=== PATIENT | male | born 1960 | race Caucasian/White ===

== ENCOUNTER 2023-09-22 20:42 | Inpatient (IN) | payer MEDICARE ==
[~2023-09-22] VITALS: Ht 175.3 cm; Wt 86.2 kg
[2023-09-22 20:43] VITALS: BP_SYST 130; PULSE 100; RESP 22; TEMP 100; O2SAT 94
[2023-09-22] MEDS ORDERED: iohexoL 350 mgI/mL, 100 ML INFUS..BTL IV ONE (20:52)
[2023-09-22 21:00] LABS: BASOPHILS % (AUTO) 0.2 % (0.0-2.0); HEMATOCRIT 45.8 % (36-54); HEMOGLOBIN 15.7 g/dL (14.0-18.0); LYMPHOCYTES # (AUTO) 0.3 K/uL (1.0-5.5); LYMPHOCYTES % (AUTO) 1.8 % (20.5-51.5); MEAN CORPUSCULAR HEMOGLOBIN 31 pg (27-31); MEAN CORPUSCULAR HGB CONC 34 % (32-36); MEAN CORPUSCULAR VOLUME 89 fL (79.0-98.0); MONOCYTES # (AUTO) 0.6 K/uL (0.0-1.0); MONOCYTES % (AUTO) 4.1 % (1.7-9.3); NEUTROPHILS # (AUTO) 13.3 K/uL (1.8-7.7); NEUTROPHILS % (AUTO) 93.9 % (40.0-70.0); PLATELET COUNT (AUTO) 162 K/uL (130-430); RED BLOOD CELL COUNT(AUTO) 5.12 MIL/uL (4.2-6.2); RED CELL DISTRIBUTION WIDTH 13.9 % (9.0-15.0); WHITE BLOOD COUNT (AUTO) 14.1 K/uL (4.8-10.8)
[2023-09-22 21:22] LABS: HEMOGLOBIN A1C 6.07 % (<5.7)
[2023-09-22 21:30] LABS: ANION GAP 12 (5-15); CALCIUM 9.1 mg/dL (8.4-11.0); CARBON DIOXIDE 24 mmol/L (23-29); CHLORIDE 100 mmol/L (98-107); CREATININE 1.94 mg/dL (0.55-1.30); GFR AFRICAN AMERICAN 45 mL/min (>90); GLUCOSE 185 mg/dL (74-106); SODIUM SERUM 136 mmol/L (136-145); UREA NITROGEN, BLOOD 35 mg/dL (8-21)
[2023-09-22 21:31] LABS: GFR NON AFRICAN-AMERICAN 37 mL/min (>90)
[2023-09-22 21:34] LABS: INR 1.1 (0.80-1.20); PROTHROMBIN TIME 11.1 SECS (9.5-12.5)
[2023-09-22 21:41] LABS: BILIRUBIN,URINE NEGATIVE (NEGATIVE); BLOOD, URINE 3+ (NEGATIVE); COLOR,URINE YELLOW (YELLOW); GLUCOSE,URINE 1+ (NEGATIVE); KETONES,URINE TRACE (NEGATIVE); LEUKOCYTE ESTERASE ,URINE NEGATIVE (NEGATIVE); NITRITE, URINE NEGATIVE (NEGATIVE); PH,URINE 5.5 (5.0-8.0); PROTEIN URINE 2+ (NEGATIVE)
[2023-09-22] MEDS ORDERED: NACL 0.9% 1,000 ML IV ONE ×2 (21:45→23:45)
[2023-09-22 21:51] LABS: BARBITURATE, URINE NEGATIVE (NEG <=200); BENZODIAZEPINE, URINE NEGATIVE (NEG <=150); CANNABINOID, URINE NEGATIVE (NEG <=50); COCAINE, URINE NEGATIVE (NEG <=150); METHAMPHETAMINES SCREEN,URINE NEGATIVE (NEG <=500); OPIATE, URINE NEGATIVE (NEG <=100); PHENCYCLIDINE SCREEN,URINE NEGATIVE (NEG <=25); UR TRICYCLIC ANTIDEPRESSANTS NEGATIVE (NEG <=300); URINE AMPHETAMINE NEGATIVE (NEG <=500); URINE METHADONE NEGATIVE (NEG <=200); URINE OXYCODONE SCREEN NEGATIVE (NEG <=100)
[2023-09-22 21:53] LABS: CLARITY/URINE CLOUDY (CLEAR)
[2023-09-22 22:04] LABS: CHOLESTEROL 120 mg/dL (<200); HDL CHOLESTEROL 49 mg/dL (>45); TRIGLYCERIDES 115 mg/dL (30-150)
[2023-09-22] MEDS ORDERED: LOSA-413 PO (22:37)
[2023-09-22] MEDS ORDERED: DAPA1TAB3 PO (22:37)
[2023-09-22] MEDS ORDERED: ATOR10TA68 PO (22:40)
[2023-09-22 22:58] LABS: BACTERIA,URINE FEW /HPF (None Seen); WBC,URINE 0-3 /HPF (0-3)
[2023-09-22 22:59] LABS: FINE GRANULAR CASTS,URINE 0-10 /LPF (None Seen); MUCUS,URINE None Seen /LPF (None Seen)
[2023-09-22] MEDS ORDERED: VANCOMYCIN HCL 1,000 MG in NS 250 ML IV ONE (23:45)
[2023-09-22] MEDS ORDERED: ACYCLOVIR IV 750 MG in D5W 100 ML IV ONE (23:45)
[2023-09-22] MEDS ORDERED: ACYCLOVIR SODIUM 50 MG/ML VIAL IV ONE (23:54)
[2023-09-22] MEDS ORDERED: VANCOMYCIN HCL 1000 MG/VIAL IV ONE (23:55)
[2023-09-22] MEDS ORDERED: cefTRIAXone 2 GM VIAL ONE (23:55)
[2023-09-23] MEDS ORDERED: HYDROmorphone 2 MG/ML VIAL IVP PRN
[2023-09-23] MEDS ORDERED: LORazepam 2 MG/ML VIAL IVP PRN
[2023-09-23] MEDS ORDERED: ALBUTEROL SULFATE 0.083% 2.5 MG/3 ML VIAL.NEB INH PRN
[2023-09-23] MEDS ORDERED: HYDROmorphone 1 MG/ML INJ. CARTRIDGE IVP PRN
[2023-09-23] MEDS ORDERED: ASPIRIN 81 MG TAB.CHEW PO ONE
[2023-09-23] MEDS ORDERED: ONDANSETRON HCL 4 MG/2 ML VIAL IVP PRN
[2023-09-23] MEDS ORDERED: ACETAMINOPHEN 650 MG SUPP.RECT RC PRN (00:15)
[2023-09-23 00:37] LABS: COVID19 ANTIGEN SOFIA FIA NEGATIVE (NEGATIVE)
[2023-09-23] MEDS ORDERED: ACETAMINOPHEN 650 MG SUPP.RECT RC ONE (01:08)
[2023-09-23 01:24] LABS: INFLUENZA TYPE A Negative (NEGATIVE); INFLUENZA TYPE B NEGATIVE (NEGATIVE)
[2023-09-23 01:44] VITALS: BP_SYST 122; PULSE 105; O2SAT 96
[2023-09-23 02:49] LABS: CSF APPEARANCE CLEAR (CLEAR); CSF COLOR COLORLESS (COLORLESS)
[2023-09-23 03:16] LABS: CSF RED BLOOD CELL COUNT #1 42 /uL (0-0); CSF RED BLOOD CELL COUNT #4 10 /uL (0-0); CSF WHITE BLOOD CELL COUNT #1 0 /uL (0-5); CSF WHITE BLOOD CELL COUNT #4 0 /uL (0-5)
[2023-09-23 03:36] LABS: CSF PROTEIN 61 mg/dL (15-45)
[2023-09-23 03:37] LABS: CSF GLUCOSE 95 mg/dL (40-70)
[2023-09-23] MEDS ORDERED: DIPHENHYDRAMINE INJ 50 MG/ML VIAL IVP ONE (07:00)
[2023-09-23] MEDS ORDERED: NACL 0.9% 1,000 ML IV SCH (07:45)
[2023-09-23] MEDS ORDERED: DEXTROSE 50% JECT 50 ML DISP.SYRIN IVP PRN (08:00)
[2023-09-23] MEDS ORDERED: INSULIN LISPRO SLIDING SCALE 100 UNITS/ML, 3 ML VIAL (humaLOG) SUBCUT PRN (08:00)
[2023-09-23] MEDS ORDERED: ASPIRIN 81 MG TAB.CHEW PO SCH (09:00)
[2023-09-23 09:12] LABS: BASOPHILS # (AUTO) 0.1 K/uL (0.0-0.2); BASOPHILS % (AUTO) 0.4 % (0.0-2.0); EOSINOPHILS % (AUTO) 0.2 % (0.0-4.0); HEMATOCRIT 44.5 % (36-54); HEMOGLOBIN 15.2 g/dL (14.0-18.0); LYMPHOCYTES # (AUTO) 0.4 K/uL (1.0-5.5); LYMPHOCYTES % (AUTO) 3.2 % (20.5-51.5); MEAN CORPUSCULAR HEMOGLOBIN 31 pg (27-31); MEAN CORPUSCULAR HGB CONC 34 % (32-36); MEAN CORPUSCULAR VOLUME 90 fL (79.0-98.0); MONOCYTES # (AUTO) 0.5 K/uL (0.0-1.0); MONOCYTES % (AUTO) 3.6 % (1.7-9.3); NEUTROPHILS # (AUTO) 12.7 K/uL (1.8-7.7); NEUTROPHILS % (AUTO) 92.6 % (40.0-70.0); PLATELET COUNT (AUTO) 114 K/uL (130-430); RED BLOOD CELL COUNT(AUTO) 4.96 MIL/uL (4.2-6.2); RED CELL DISTRIBUTION WIDTH 14.1 % (9.0-15.0); WHITE BLOOD COUNT (AUTO) 13.7 K/uL (4.8-10.8)
[2023-09-23 09:20] LABS: ERYTHROCYTE SEDIMENTATION RATE 27 MM/HR (0-15)
[2023-09-23 09:30] LABS: CALCIUM 8.2 mg/dL (8.4-11.0); CREATININE 2.01 mg/dL (0.55-1.30); POTASSIUM 3.9 mmol/L (3.5-5.1)
[2023-09-23 09:46] LABS: ALBUMIN 2.6 g/dL (3.4-4.8); TOTAL BILIRUBIN 0.7 mg/dL (0.0-1.0); TOTAL PROTEIN, SERUM 6.1 g/dL (6.4-8.3)
[2023-09-23] MEDS ORDERED: cefTRIAXone 2 GM VIAL ONE (10:18)
[2023-09-23 11:47] LABS: CKMB RELATIVE INDEX 0.4 (0.0-2.9); CREATINE KINASE MB 2.9 ng/mL (0-3.6)
[2023-09-23] MEDS ORDERED: VANCOMYCIN HCL 1.25 GM/NS 250 ML IV SCH (12:00)
[2023-09-23] MEDS ORDERED: ACYCLOVIR IV 750 MG in D5W 100 ML IV SCH (14:00)
[2023-09-23] MEDS ORDERED: HYDROcodone/ACETAMIN 5-325 MG TAB (NORCO/ VICODIN) PO PRN (14:45)
[2023-09-23] MEDS ORDERED: ACETAMINOPHEN 325 MG TABLET ONE (18:07)
[2023-09-23] MEDS: ACETAMINOPHEN 325 MG TABLET PO PRN ×3 (18:11→19:20)
[2023-09-23 19:45] VITALS: BP_SYST 121; PULSE 104; RESP 19; TEMP 97.7; O2SAT 95
[2023-09-23] MEDS ORDERED: HEPARIN SODIUM,PORCINE 5,000 UNITS/ML VIAL SUBCUT SCH (21:00)
[2023-09-23] MEDS ORDERED: ATORVASTATIN 20 MG TABLET PO SCH (21:00)
[2023-09-24] MEDS ORDERED: cefTRIAXone 1 GM in D5W 50 ML IV SCH (09:00)
[2023-09-26 10:07] LABS: VDRL, CSF Non Reactive (Non Rea:<1:1)
== END 2023-09-23 14:00 | disposition short-term general hospital (02) | DRG 871 ==
LOC: SED 20:42 → STU 23:52
PROVIDERS: ADMIT Internal Medicine; ATTEND Internal Medicine
DX: A41.9 Sepsis, unspecified organism (principal); G00.9 Bacterial meningitis, unspecified; G93.41 Metabolic encephalopathy; I63.89 Other cerebral infarction; N17.9 Acute kidney failure, unspecified; D84.9 Immunodeficiency, unspecified; E66.9 Obesity, unspecified; Z68.28 Body mass index [BMI] 28.0-28.9, adult; Z20.822 Contact with and (suspected) exposure to COVID-19; E11.22 Type 2 diabetes mellitus with diabetic chronic kidney disease; N18.9 Chronic kidney disease, unspecified; I12.9 Hypertensive chronic kidney disease with stage 1 through stage 4 chronic kidney disease, or unspecified chronic kidney disease; Z82.49 Family history of ischemic heart disease and other diseases of the circulatory system
CPT/HCPCS: 36415; 70450; 70496; 70498; 70551; 71045; 76376; 80048; 80053; 80061; 80202; 80307; 81000; 81001; 81015; 82550; 82553; 82947; 82962; 83037; 83605; 84157; 84484; 85025; 85048; 85610-TC; 85651-TC; 85730-TC; 86592; 86788; 86789; 86886; 86900; 86901; 87040; 87070-TC; 87186-TC; 87205-TC; 89051-TC; 92610-GN; 93005; 93306; 99291; G0378; J0133; J0696; J1200; J3370; J7050; J7060; Q9967